=== PATIENT | female | born 1995 | race Caucasian/White ===

== ENCOUNTER 2019-02-19 10:36 | Emergency (ER) | payer MEDICAID, SELFPAY ==
[2019-02-19] MEDS ORDERED: Ondansetron ODT 4 MG TAB ONE (10:54)
== END 2019-02-19 11:24 | disposition home or self-care (01) ==
LOC: MADERS 10:36
DX: K52.9 Noninfective gastroenteritis and colitis, unspecified (principal); J45.909 Unspecified asthma, uncomplicated; F31.9 Bipolar disorder, unspecified; F43.10 Post-traumatic stress disorder, unspecified; F17.210 Nicotine dependence, cigarettes, uncomplicated
CPT/HCPCS: 99284; Q0162